=== PATIENT | male | born 1995 | race Caucasian/White ===

== ENCOUNTER 2018-08-07 11:44 | Emergency (ER) | payer MEDICAID, OTHER ==
[2018-08-07] MEDS: KETOROLAC 60 MG INJ IM (12:27)
== END 2018-08-07 12:40 | disposition home or self-care (01) ==
LOC: FTE 11:44
DX: M54.5 Low back pain (principal); J45.909 Unspecified asthma, uncomplicated
CPT/HCPCS: 72100; 96372; 99284-25